=== PATIENT | female | born 1990 ===

== ENCOUNTER → 2018-06-09 06:55 | Outpatient (CLI) | payer OTHER | END | disposition home or self-care (01) | LOC: LAB 06:55 | DX: Z34.01 Encounter for supervision of normal first pregnancy, first trimester (principal); Z11.4 Encounter for screening for human immunodeficiency virus [HIV] ==

== ENCOUNTER 2018-06-09 11:34 | Outpatient (CLI) | payer OTHER | END 2018-06-09 11:36 | disposition home or self-care (01) | LOC: SONOGRAMA 11:34 | DX: Z34.91 Encounter for supervision of normal pregnancy, unspecified, first trimester (principal) ==